=== PATIENT | male | born 1975 | race Caucasian/White ===

== ENCOUNTER 2022-06-14 18:03 | Emergency (ER) | payer OTHER ==
[2022-06-14] MEDS ORDERED: FLEXERIL5 MG PO (22:49)
== END 2022-06-14 23:00 | disposition home or self-care (01) ==
LOC: FER 18:03
DX: M25.552 Pain in left hip (principal); M79.602 Pain in left arm; M54.2 Cervicalgia; M54.6 Pain in thoracic spine; M54.50 Low back pain, unspecified; E11.9 Type 2 diabetes mellitus without complications; Z79.84 Long term (current) use of oral hypoglycemic drugs; V49.40XA Driver injured in collision with unspecified motor vehicles in traffic accident, initial encounter
CPT/HCPCS: 72125; 72128; 72131; 73060; 73502